=== PATIENT | male | born 1990 | race Caucasian/White ===

== ENCOUNTER 2019-03-14 19:11 | Emergency (ER) | payer MEDICAID ==
[~2019-03-14] VITALS: Ht 182.9 cm; Wt 65.9 kg
[~2019-03-14 19:11] MED LIST: MINOCIN100 MG PO; NORCO 10/325 TA1 TA1 PO
[2019-03-14 19:31] VITALS: Ht 182.9 cm; Wt 65.9 kg
[2019-03-14 21:24] LABS: BASOPHILS 0.4 % (0-2); EOSINOPHILS 1.6 % (0-7); HEMATOCRIT 36.9 % (42.0-54.0); HEMOGLOBIN 12.6 g/dL (13.5-17.5); IMMATURE GRANULOCYTES 0.1 % (0-5); LYMPHOCYTES 32.1 % (15-50); MCHC 34.1 g/dL (31.0-37.0); MEAN PLATELET VOLUME 8.3 fL (7.4-10.4); NEUTROPHILS 50.8 % (40-80); PLATELET COUNT 296 10x3/uL (130-400); RBC 4.67 10x6/uL (4.20-6.10); RDW 13.1 % (11.5-14.5)
[2019-03-14 21:52] LABS: ALBUMIN 3.5 g/dL (3.4-5.0); ALKALINE PHOSPHATASE 62 U/L (46-116); ALT (SGPT) 26 U/L (10-68); BILIRUBIN - TOTAL 0.75 mg/dL (0.2-1.3); CALC OSMOLALITY 280 mosm/kg (275-300); CALCIUM 9.2 mg/dL (8.5-10.1); CARBON DIOXIDE 26.9 mmol/L (21.0-32.0); CHLORIDE - SERUM 102 mmol/L (98-107); CREATININE - SERUM 1.1 mg/dL (0.6-1.3); GLUCOSE 75 mg/dL (74-106); PROTEIN - SERUM 7.3 g/dL (6.4-8.2); SODIUM 140 mmol/L (136-145); UREA NITROGEN 20 mg/dL (7-18); eGFR NON AFRICAN AMERICAN 85 mL/min (90-120)
[2019-03-14 21:59] LABS: POTASSIUM - SERUM 2.7 mmol/L (3.5-5.1)
[2019-03-15 02:44] LABS: MAGNESIUM - SERUM 2.5 mg/dL (1.8-2.4)
[2019-03-15 02:45] LABS: POTASSIUM - SERUM 3.4 mmol/L (3.5-5.1)
[2019-03-15 03:05] VITALS: BP 105/55
== END 2019-03-15 03:05 | disposition home or self-care (01) ==
LOC: D.ER 19:11
PROVIDERS: Family Medicine
DX: G80.9 Cerebral palsy, unspecified (principal); R20.0 Anesthesia of skin; E87.6 Hypokalemia

== ENCOUNTER 2019-12-14 22:42 | Emergency (ER) | payer MEDICAID ==
[~2019-12-14] VITALS: Ht 182.9 cm; Wt 63.6 kg
[2019-12-14 22:47] VITALS: Ht 182.9 cm; Wt 63.6 kg
[2019-12-14] MEDS ORDERED: CYCLOBENZAPRINE10 MG PO (23:25)
[2019-12-14] MEDS ORDERED: EC-NAPROSYN500 MG PO (23:25)
[2019-12-14 23:44] VITALS: BP 122/76
== END 2019-12-14 23:44 | disposition home or self-care (01) ==
LOC: D.ER 22:42
DX: S20.211A Contusion of right front wall of thorax, initial encounter (principal); G80.9 Cerebral palsy, unspecified; W22.8XXA Striking against or struck by other objects, initial encounter; Y93.9 Activity, unspecified; Y92.9 Unspecified place or not applicable

== ENCOUNTER 2020-02-12 14:43 | Emergency (ER) | payer MEDICAID ==
[~2020-02-12] VITALS: Ht 182.9 cm; Wt 63.6 kg
[~2020-02-12 14:43] MED LIST changes: +CYCLOBENZAPRINE10 MG PO; +EC-NAPROSYN500 MG PO
[2020-02-12 15:08] VITALS: Ht 182.9 cm; Wt 63.6 kg
[2020-02-12 16:30] VITALS: BP 130/72
== END 2020-02-12 16:30 | disposition home or self-care (01) ==
LOC: D.ER 14:43
DX: M25.562 Pain in left knee (principal); M23.92 Unspecified internal derangement of left knee; Z86.73 Personal history of transient ischemic attack (TIA), and cerebral infarction without residual deficits

== ENCOUNTER → 2020-02-21 12:44 | Outpatient (CLI) | payer MEDICAID ==
[2020-02-12 15:08] VITALS: BMI 19.0
== END | disposition home or self-care (01) ==
LOC: D.MRI 02-17 14:30
PROVIDERS: ATTEND Orthopaedic Surgery
DX: M25.562 Pain in left knee (principal)

== ENCOUNTER 2020-04-13 21:50 | Emergency (ER) | payer MEDICAID ==
[~2020-04-13] VITALS: Ht 182.9 cm; Wt 63.6 kg
[2020-04-13 22:00] VITALS: BP 121/72; Ht 182.9 cm; Wt 63.6 kg
== END 2020-04-13 22:41 | disposition home or self-care (01) ==
LOC: D.ER 21:50
DX: S50.01XA Contusion of right elbow, initial encounter (principal); Z86.73 Personal history of transient ischemic attack (TIA), and cerebral infarction without residual deficits; W01.0XXA Fall on same level from slipping, tripping and stumbling without subsequent striking against object, initial encounter; Y93.9 Activity, unspecified; Y92.9 Unspecified place or not applicable

== ENCOUNTER 2020-10-26 20:16 | Emergency (ER) | payer MEDICAID ==
[~2020-10-26] VITALS: Ht 182.9 cm; Wt 63.6 kg
[2020-10-26 20:18] VITALS: Ht 182.9 cm; Wt 63.6 kg
[2020-10-26 20:49] VITALS: BP 125/69
[2020-10-26] MEDS ORDERED: CLARITIN 10 MG10 MG PO (21:14)
[2020-10-26] MEDS ORDERED: MUCINEX600 MG PO (21:14)
== END 2020-10-26 20:49 | disposition home or self-care (01) ==
LOC: D.ER 20:16
DX: R05 Cough (principal); R09.82 Postnasal drip; Z86.73 Personal history of transient ischemic attack (TIA), and cerebral infarction without residual deficits